=== PATIENT | female | born 1955 | race Caucasian/White ===

== ENCOUNTER 2017-07-27 18:37 | Inpatient (IN) | payer MEDICARE ==
[2017-07-27] MEDS ORDERED: NORMAL SALINE 500 ML IV ONE (19:17)
--- NOTE | 2017-07-27 19:33 | RADIOLOGY REPORT (SQ) ---
EXAM DESCRIPTION: CHEST SINGLE VIEW COMPLETED DATE/TIME: 07/27/2017 7:11 pm REASON FOR STUDY: bed mp db COMPARISON: None. EXAM PARAMETERS: NUMBER OF VIEWS: One view. TECHNIQUE: Single frontal radiographic view of the chest acquired. RADIATION DOSE: NA LIMITATIONS: None. FINDINGS: LUNGS AND PLEURA: No consolidation, masses or pneumothorax. No pleural effusion. MEDIASTINUM AND HILAR STRUCTURES: No masses. Contour normal. HEART AND VASCULAR STRUCTURES: Heart normal in size. Normal vasculature. BONES: No acute findings. HARDWARE: CABG. OTHER: No other significant finding. IMPRESSION: NO ACUTE RADIOGRAPHIC FINDING IN THE CHEST. TECHNICAL DOCUMENTATION: JOB ID: [id number] [place]-72 2010 [employer]- All Rights Reserved Reading location - IP/workstation name: [email or web address]
[2017-07-27 19:50] LABS: ABSOLUTE BASOPHILS # (AUTO) 0.1 10^3/uL (0.0-0.2); ABSOLUTE LYMPHOCYTES (AUTO) 2.4 10^3/uL (0.5-4.7); ABSOLUTE MONOCYTES (AUTO) 0.6 10^3/uL (0.1-1.4); ABSOLUTE NEUT (AUTO) 8.9 10^3/uL (1.7-8.2); BASOPHILS % (AUTO) 0.8 % (0-2); EOSINOPHILS % (AUTO) 0.1 % (0-6); HEMATOCRIT 42.8 % (36.0-47.0); LYMPHOCYTES % (AUTO) 19.9 % (13-45); MEAN CORPUSCULAR HEMOGLOBIN 34.4 pg (27.0-33.4); MEAN CORPUSCULAR HGB CONC 32.8 g/dL (32.0-36.0); MEAN CORPUSCULAR VOLUME 105 fl (80-97); MONOCYTES % (AUTO) 4.8 % (3-13); PLATELET COUNT 514 10^3/uL (150-450); RED BLOOD COUNT 4.09 10^6/uL (3.72-5.28); RED CELL DISTRIBUTION WIDTH 14.7 % (11.5-14.0); SEGMENTED NEUTROPHILS % (AUTO) 74.4 % (42-78); TOTAL CELLS COUNTED % (AUTO) 100 %
[2017-07-27] MEDS ORDERED: IPRATROPIUM/ALBUTEROL 0.5-2.5 MG/3 ML AMPUL NEB ONE (19:55)
--- NOTE | 2017-07-27 20:02 | ER Document Report ---
ED General - General Chief Complaint: Shortness Of Breath Stated Complaint: SHORTNESS OF BREATH Time Seen by Provider: 07/27/17 19:08 Mode of Arrival: Ambulatory Information source: Patient Notes: This is a 62-year-old female with a history of coronary artery disease (CABG 10 years ago in [place]), possible history of COPD (per patient accounts) who presents to the emergency room with shortness of breath. Patient states her shortness of breath is progressing over the past week. The patient's states that she has had a 40 pound weight loss in the 6 months. They have moved up from [place] 2 years ago and the patient is not followed by a physician at this time. She is not on any medicines. She denies any chest pain. - HPI Onset: Other - Last few weeks Onset/Duration: Gradual Quality of pain: No pain Severity: None Pain Level: Denies Associated symptoms: Shortness of breath. denies: Chest pain, Fever, Nausea, Vomiting Exacerbated by: Denies Relieved by: Denies Similar symptoms previously: Yes Recently seen / treated by doctor: No - Related Data Allergies/Adverse Reactions: morphine Allergy (Severe, Verified 07/27/17 19:52) Past Medical History - General Information source: Patient - Social History Smoking Status: Former Smoker Cigarette use (# per day): No Chew tobacco use (# tins/day): No Frequency of alcohol use: None Drug Abuse: None Lives with: Family Family History: None Patient has suicidal ideation: No Patient has homicidal ideation: No - Past Medical History Cardiac Medical History: Reports: Hx Coronary Artery Disease Pulmonary Medical History: Reports: None EENT Medical History: Reports: None Neurological Medical History: Reports: None Endocrine Medical History: Reports: Hx Diabetes Mellitus Type 2 Renal/ Medical History: Denies: Hx Peritoneal Dialysis Malignancy Medical History: Reports: None GI Medical History: Reports: None Musculoskeltal Medical History: Reports None Skin Medical History: Reports None Psychiatric Medical History: Reports: None Traumatic Medical History: Reports: None Infectious Medical History: Reports: None Past Surgical History: Reports: Hx Cardiac Catheterization - CABG Review of Systems - Review of Systems Constitutional: denies: Chills, Fever EENT: No symptoms reported Cardiovascular: No symptoms reported Respiratory: No symptoms reported Gastrointestinal: No symptoms reported Genitourinary: No symptoms reported Female Genitourinary: No symptoms reported Musculoskeletal: No symptoms reported Skin: No symptoms reported Hematologic/Lymphatic: No symptoms reported Neurological/Psychological: No symptoms reported Physical Exam - Vital signs Vitals: Pulse Ox 96 07/27/17 18:42 Notes: Physical exam: GENERAL: 62-year-old female who is alert and oriented 3, she appears frail and short of breath. Her blood pressure is 103/79. Her pulse is 115. She has an oxygen saturation of 96% on room air her respiratory rate is 24. HEAD: Atraumatic, normocephalic. EYES: Pupils equal round and reactive to light, extraocular movements intact, sclera anicteric, conjunctiva are normal. ENT: TMs normal, nares patent, oropharynx clear without exudates. Moist mucous membranes. NECK: Normal range of motion, supple without obvious mass or JVD. LUNGS: Breath sounds clear to auscultation bilaterally and equal. No wheezes rales or rhonchi. HEART: Regular rate and rhythm without murmurs, rubs or gallops. ABDOMEN: Soft, normoactive bowel sounds. No tenderness to palpation. No guarding, no rebound. No masses appreciated. EXTREMITIES: Normal range of motion, no pitting or edema. No clubbing or cyanosis. There is no calf tenderness or asymmetry in the lower extremities. NEUROLOGICAL: Cranial nerves II through XII grossly intact. Normal speech, moving all extremities. PSYCH: Normal mood, normal affect. SKIN: Warm, Dry, normal turgor, no rashes or lesions noted. Course - Re-evaluation Re-evalutation: 07/28/17 02:57 Note: The patient was desaturating to the 90% on room air. Her oxygen saturation is approximately 96% with supplemental oxygen. Her chest x-ray appears clear. She does not appear to be in failure. She was given a dual neb but had only minimal results. She does have an elevated d-dimer. We are unable to do a CTA tonight because of lack of an antecubital IV. She does have an IV, just not one in the antecubital which would be necessary for CTA. She was given a dose of Lovenox. The plan will be to bring her into the hospital to continue cardiac enzymes and follow her on the monitor and to consider a VQ scan tomorrow (not available now). - Vital Signs Vital signs: Temp Pulse Resp BP Pulse Ox 97.8 F 96 07/27/17 19:56 07/27/17 18:42 - Laboratory Result Diagrams: 07/27/17 19:36 07/27/17 21:05 Laboratory results interpreted by me: 07/27/17 07/27/17 07/27/17 19:36 21:05 21:50 WBC 12.0 H MCV 105 H MCH 34.4 H RDW 14.7 H Plt Count 514 H Absolute Neutrophils 8.9 H Chloride 108 H Creatinine 0.43 L Calcium 7.7 L Direct Bilirubin 0.7 H Alkaline Phosphatase 129 H Total Protein 5.9 L Albumin 2.3 L Urine Protein 30 H Urine Ketones TRACE H Urine Nitrite POSITIVE H Urine Urobilinogen 4.0 H Ur Leukocyte Esterase MODERATE H - Diagnostic Test Radiology reviewed: Image reviewed, Reports reviewed - Chest x-ray shows no infiltrates or effusions - EKG Interpretation by Me Rate: Normal Rhythm: NSR - EKG shows normal sinus rhythm with a ventricular rate of 100, there is inverted T's V1 through V3. There is no old EKG to compare Critical Care Note - Critical Care Note Total time excluding time spent on procedures (mins): 60 Discharge - Discharge Clinical Impression: Dyspnea, UTI Condition: Stable Disposition: ADMITTED INPATIENT Admitting Provider: Hospitalist - Dr Davey Unit Admitted: Telemetry
--- NOTE | 2017-07-27 21:17 | EKG REPORT ---
SEVERITY:- ABNORMAL ECG - SINUS TACHYCARDIA LOW VOLTAGE IN FRONTAL LEADS NONSPECIFIC T ABNORMALITIES, ANTERIOR LEADS BORDERLINE PROLONGED QT INTERVAL : Confirmed by: Damion Gonzalez 27-Jul-2017 21:16:40
[2017-07-27 21:38] LABS: ALANINE AMINOTRANSFERASE 21 U/L (9-52); ALBUMIN 2.3 g/dL (3.5-5.0); ALKALINE PHOSPHATASE 129 U/L (38-126); ANION GAP 11 (5-19); ASPARTATE AMINO TRANSFERASE 33 U/L (14-36); BILIRUBIN,DIRECT 0.7 mg/dL (0.0-0.4); BLOOD UREA NITROGEN 10 mg/dL (7-20); CALCIUM 7.7 mg/dL (8.4-10.2); CARBON DIOXIDE 25 mmol/L (22-30); CHLORIDE 108 mmol/L (98-107); CREATINE KINASE 36 U/L (30-135); GLUCOSE 94 mg/dL (75-110); POTASSIUM 3.7 mmol/L (3.6-5.0); SODIUM 143.9 mmol/L (137-145); TOTAL PROTEIN 5.9 g/dL (6.3-8.2)
[2017-07-27 21:48] LABS: CREATINE KINASE MB 1.39 ng/mL (<4.55)
[2017-07-27 21:50] LABS: TROPONIN I 0.066 ng/mL
[2017-07-27] MEDS ORDERED: ENOXAPARIN SODIUM INJ 100 MG/1 ML DISP.SYRIN SUBCUT ONE (21:53)
[2017-07-27 22:15] LABS: APPEARANCE,URINE CLOUDY; BILIRUBIN,URINE NEGATIVE (NEGATIVE); COLOR,URINE AMBER; GLUCOSE, URINE NEGATIVE (NEGATIVE); KETONES,URINE TRACE mg/dL (NEGATIVE); LEUKOCYTE ESTERASE,URINE MODERATE (NEGATIVE); NITRITE,URINE POSITIVE (NEGATIVE); PROTEIN,URINE 30 mg/dL (NEGATIVE); URINE SPECIFIC GRAVITY 1.027
[2017-07-28] MEDS ORDERED: CALCIUM GLUCONATE 1000 MG/10 ML INJ IV ONE (00:04)
[2017-07-28] MEDS ORDERED: CEFTRIAXONE 1 GM/D5W RTU 1 GM/50 ML RTUPB IV ONE (00:04)
[2017-07-28] MEDS ORDERED: ONDANSETRON HCL INJ/PF 4 MG/2 ML SDV IV PRN (02:29)
[2017-07-28] MEDS ORDERED: MIRTAZAPINE 15 MG TABLET PO SCH ×2 (02:45→22:00)
--- NOTE | 2017-07-28 02:49 | PDOC H&P ---
History of Present Illness Admission Date/PCP: 07/28/17 02:29 History of Present Illness: AKI KRAUSE is a 62 year old female patient presents with chief complaint of shortness of breath of one-week duration. She claims shortness of breath is getting worse the last several days. Patient has underlying COPD and coronary artery disease status post coronary artery bypass graft 10 years ago. Patient has not seen a physician over 2 years and she is not in any medication. Her chest x-ray shows hyperinflated lungs with bilateral lucencies and her blood work shows mild leukocytosis. Patient denies any chest pain, fever, chills but she endorses dry cough. She denies nausea, vomiting, abdominal pain or diarrhea. Past Medical History Cardiac Medical History: Reports: Coronary Artery Disease Pulmonary Medical History: Reports: None, Chronic Obstructive Pulmonary Disease (COPD) EENT Medical History: Reports: None Neurological Medical History: Reports: None Endocrine Medical History: Reports: Diabetes Mellitus Type 2 Malignancy Medical History: Reports: None GI Medical History: Reports: None Musculoskeltal Medical History: Reports: None Skin Medical History: Reports: None Psychiatric Medical History: Reports: None Traumatic Medical History: Reports: None Infectious Medical History: Reports: None Past Surgical History Past Surgical History: Reports: Cardiac Catheterization - CABG, Coronary Artery Bypass Graft Social History Lives with: Family Smoking Status: Former Smoker Frequency of Alcohol Use: None Drugs: None - Advance Directive Resuscitation Status: Full Code Family History Family History: None Parental Family History Reviewed: Yes Children Family History Reviewed: Yes Sibling(s) Family History Reviewed.: Yes Medication/Allergy Allergies/Adverse Reactions: morphine Allergy (Severe, Verified 07/27/17 19:52) Review of Systems Constitutional: PRESENT: as per HPI Ears: PRESENT: as per HPI Cardiovascular: PRESENT: as per HPI Respiratory: PRESENT: as per HPI Gastrointestinal: PRESENT: as per HPI Neurological: PRESENT: as per HPI Physical Exam Vital Signs: Temp Pulse Resp BP Pulse Ox 97.8 F 96 07/27/17 19:56 07/27/17 18:42 General appearance: PRESENT: disheveled, other - Cachectic Head exam: PRESENT: atraumatic, normocephalic Respiratory exam: PRESENT: wheezes Cardiovascular exam: PRESENT: RRR. ABSENT: diastolic murmur, rubs, systolic murmur GI/Abdominal exam: PRESENT: other - Scaphoid abdomen Neurological exam: PRESENT: alert, awake, oriented to time Psychiatric exam: PRESENT: depressed Results Impressions: Chest X-Ray 07/27/17 18:42 IMPRESSION: NO ACUTE RADIOGRAPHIC FINDING IN THE CHEST. Assessment & Plan - Diagnosis (1) COPD exacerbation Is this a current diagnosis for this admission?: Yes Plan: Patient has been started on Rocephin, doxycycline, supplemental oxygen, DuoNeb, Solu-Medrol. (2) UTI (urinary tract infection) Is this a current diagnosis for this admission?: Yes Plan: Patient has been on ceftriaxone (3) Coronary artery disease Qualifiers: Coronary Disease-Associated Artery/Lesion type: [place] artery Is this a current diagnosis for this admission?: Yes Plan: Patient does not have angina. Continue her home medication. (4) Malnutrition of moderate degree Is this a current diagnosis for this admission?: Yes Plan: Nutritional support. - Time Time Spent: 30 to 50 Minutes - Inpatient Certification Medical Necessity: Need for IV Antibiotics
[2017-07-28] MEDS ORDERED: DOXYCYCLINE HYCLATE 100 MG in DEXTROSE 5%-WATER 250 ML IV ONE (03:00)
[2017-07-28] MEDS ORDERED: METHYLPREDNISOLONE INJ 40 MG/1 ML SDV IV ONE (03:00)
[2017-07-28] MEDS ORDERED: MIRTAZAPINE 15 MG TABLET PO ONE (03:00)
[2017-07-28] MEDS: IPRATROPIUM/ALBUTEROL 0.5-2.5 MG/3 ML AMPUL NEB SCH ×6 (04:12→23:45)
[2017-07-28] MEDS: LANSOPRAZOLE 30 MG TAB.RAP.DR PO SCH (05:07)
[2017-07-28] MEDS: ACETAMINOPHEN 325 MG TABLET PO PRN (08:44)
[2017-07-28] MEDS ORDERED: LORAZEPAM INJ 2 MG/1 ML VIAL IV ONE (09:00)
[2017-07-28] MEDS ORDERED: ENOXAPARIN SODIUM INJ 40 MG/0.4 ML DISP.SYRIN SUBCUT SCH (10:00)
[2017-07-28] MEDS: METHYLPREDNISOLONE INJ 40 MG/1 ML SDV IV SCH ×2 (10:28→18:11)
[2017-07-28] MEDS ORDERED: LORAZEPAM 0.5 MG TABLET PO PRN (11:10)
--- NOTE | 2017-07-28 12:09 | PDOC PROGRESS REPORT ---
Subjective Progress Note for:: 07/28/17 Subjective:: Got very agitated this morning with heart rates up into the 160s, and respiratory rate 30-40. I gave her a milligram of IV Ativan which calmed her down, but it made her fairly sedate. She remains tachycardic with heart rate since the 1 teens. Most of the history I got was from her . Quit smoking 20 years ago. She reports that she has been getting more short of breath over the past week or so, but rather suddenly last night became extremely short of breath, "with a sense of doom, like I was going to ". Reason For Visit: COPD EXACERBATION, UTI Physical Exam Vital Signs: Temp Pulse Resp BP Pulse Ox 98.2 F 110 H 16 91/57 L 98 07/28/17 11:00 07/28/17 11:41 07/28/17 11:41 07/28/17 11:00 07/28/17 11:41 Intake & Output 07/27/17 07/28/17 07/29/17 05:59 05:59 05:59 Weight 108 lb 7.479 oz 108 lb 7.479 oz General appearance: PRESENT: no acute distress, other - Cachectic. ABSENT: well -nourished Respiratory exam: PRESENT: clear to auscultation jony Cardiovascular exam: PRESENT: tachycardia GI/Abdominal exam: PRESENT: soft Extremities exam: ABSENT: pedal edema Neurological exam: PRESENT: awake, oriented to person, oriented to place, oriented to time, oriented to situation, CN II-XII grossly intact. ABSENT: motor sensory deficit Psychiatric exam: PRESENT: other - Currently fairly sedate but conversational Skin exam: PRESENT: warm Results Impressions: Chest X-Ray 07/27/17 18:42 IMPRESSION: NO ACUTE RADIOGRAPHIC FINDING IN THE CHEST. Assessment & Plan - Diagnosis (1) COPD exacerbation Is this a current diagnosis for this admission?: Yes Plan: Think that this is a simple COPD exacerbation, but she does not report having anything anywhere near this severe previously. I will continue usual treatment , and additionally get a CTA of her chest to ensure we are not missing a PE. (2) Panic attacks Is this a current diagnosis for this admission?: Yes Plan: Probably related to hypoxemia/hypercarbia. Symptomatic treatment for now. She has been started on Remeron at bedtime which I think is a good idea. (3) Malnutrition of moderate degree Is this a current diagnosis for this admission?: Yes Plan: Presumably inability to consume enough to keep up with her metabolic demand. (4) UTI (urinary tract infection) Qualifiers: Urinary tract infection type: acute cystitis Hematuria presence: without hematuria Qualified Code(s): N30.00 - Acute cystitis without hematuria Is this a current diagnosis for this admission?: Yes Plan: I think mostly an incidental finding, Rocephin should be effective. Cultures pending.
[2017-07-28] MEDS ORDERED: ENOXAPARIN SODIUM INJ 60 MG/0.6 ML DISP.SYRIN SUBCUT ONE (15:00)
[2017-07-28 16:36] LABS: ARTERIAL BLOOD BASE EXCESS 4.7 mmol/L; ARTERIAL BLOOD FIO2 28%; ARTERIAL BLOOD H2CO3 1.06 mmol/L (1.05-1.35); ARTERIAL BLOOD HCO3 27.6 mmol/L (20-26); ARTERIAL BLOOD O2 SATURATION 97.5 % (94-98); ARTERIAL BLOOD PCO2 35.2 mmHg (35-45); ARTERIAL BLOOD PH 7.51 (7.35-7.45); ARTERIAL BLOOD PO2 88.5 mmHg (80-100); ARTERIAL BLOOD TOTAL CO2 28.7 mmol/L (21-25)
[2017-07-28] MEDS: DOXYCYCLINE HYCLATE 100 MG in DEXTROSE 5%-WATER 250 ML IV SCH (18:11)
[2017-07-28] MEDS ORDERED: CEFTRIAXONE 1 GM/D5W RTU 1 GM/50 ML RTUPB IV SCH (22:00)
[2017-07-28] MEDS ORDERED: CEFTRIAXONE SODIUM 1,000 MG in DEXTROSE 5%-WATER 50 ML IV SCH (22:00)
[2017-07-28] MEDS: MIRTAZAPINE 15 MG TABLET PO SCH (22:27)
[2017-07-28] MEDS: ENOXAPARIN SODIUM INJ 60 MG/0.6 ML DISP.SYRIN SUBCUT SCH (22:28)
[2017-07-28] MEDS: QUETIAPINE FUMARATE 25 MG TABLET PO SCH (22:28)
[2017-07-29] MEDS: METHYLPREDNISOLONE INJ 40 MG/1 ML SDV IV SCH ×2 (02:04→10:35)
[2017-07-29] MEDS: IPRATROPIUM/ALBUTEROL 0.5-2.5 MG/3 ML AMPUL NEB SCH ×5 (03:07→19:43)
[2017-07-29 06:19] LABS: HEMATOCRIT 33.8 % (36.0-47.0); MEAN CORPUSCULAR HEMOGLOBIN 34.6 pg (27.0-33.4); MEAN CORPUSCULAR HGB CONC 33.7 g/dL (32.0-36.0); MEAN CORPUSCULAR VOLUME 103 fl (80-97); PLATELET COUNT 435 10^3/uL (150-450); RED BLOOD COUNT 3.29 10^6/uL (3.72-5.28); RED CELL DISTRIBUTION WIDTH 14.4 % (11.5-14.0); WHITE BLOOD COUNT 16.2 10^3/uL (4.0-10.5)
[2017-07-29 06:33] LABS: ANION GAP 6 (5-19); BLOOD UREA NITROGEN 7 mg/dL (7-20); CALCIUM 7.8 mg/dL (8.4-10.2); CARBON DIOXIDE 29 mmol/L (22-30); CHLORIDE 109 mmol/L (98-107); GLUCOSE 92 mg/dL (75-110); HEMOGLOBIN 11.4 g/dL (12.0-15.5); POTASSIUM 3.5 mmol/L (3.6-5.0); SODIUM 144.2 mmol/L (137-145)
[2017-07-29 06:48] LABS: ABSOLUTE LYMPHOCYTES# (MANUAL) 0.3 10^3/uL (0.5-4.7); ABSOLUTE MONOCYTES # (MANUAL) 0.3 10^3/uL (0.1-1.4); ABSOLUTE NEUTROPHILS# (MANUAL) 15.6 10^3/uL (1.7-8.2); BAND NEUTROPHILS % (MANUAL) 2 % (3-5); BASOPHILS % (MANUAL) 0 % (0-2); EOSINOPHILS % (MANUAL) 0 % (0-6); LYMPHOCYTES % (MANUAL) 2 % (13-45); MONOCYTES % (MANUAL) 2 % (3-13); SEGMENTED NEUTROPHILS % (MAN) 94 % (42-78); TOTAL CELLS COUNTED 100
[2017-07-29 06:52] LABS: ANISOCYTOSIS SLIGHT; BURR CELLS SLIGHT; OVALOCYTES SLIGHT; PLATELET COMMENT ADEQUATE; POIKILOCYTOSIS SLIGHT; SCHISTOCYTES SLIGHT
[2017-07-29] MEDS: DOXYCYCLINE HYCLATE 100 MG in DEXTROSE 5%-WATER 250 ML IV SCH ×2 (08:50→17:41)
[2017-07-29] MEDS: LANSOPRAZOLE 30 MG TAB.RAP.DR PO SCH (08:50)
--- NOTE | 2017-07-29 10:26 | RADIOLOGY REPORT (SQ) ---
EXAM DESCRIPTION: NM LUNG VENT/PERF SCAN COMPLETED DATE/TIME: 07/29/2017 10:06 am REASON FOR STUDY: SOB, ELEV D-DIMER COMPARISON: Chest x-ray dated 07/29/2017 RADIONUCLIDE AND DOSE: 5.15 millicuries TC-99m MAA Intravenous 32.2 millicuries TC-99m DTPA Inhaled aerosol TECHNIQUE: Eight views of the lungs acquired post ventilation of DTPA aerosol. Eight matching views of the lungs acquired following injection of MAA. LIMITATIONS: Study was terminated prior to obtaining all the perfusion images due to the patient's c ondition and patient's request. FINDINGS: VENTILATION: Symmetric and homogeneous distribution of DTPA aerosol during ventilatory pha se. No significant areas of photopenia. PERFUSION: The limited perfusion images demonstrate bilateral ventilation perfusion mismatches suspic ious for pulmonary embolic disease. OTHER: No other significant finding. IMPRESSION: Limited study as noted above. Findings suspicious for bilateral pulmonary embolic disea se as noted above. Clinical correlation is recommended. TECHNICAL DOCUMENTATION: JOB ID: [id number] [employer]- All Rights Reserved Reading location - IP/workstation name: [email or web address]
[2017-07-29] MEDS: ENOXAPARIN SODIUM INJ 60 MG/0.6 ML DISP.SYRIN SUBCUT SCH ×2 (10:34→21:44)
--- NOTE | 2017-07-29 10:56 | RADIOLOGY REPORT (SQ) ---
EXAM DESCRIPTION: CHEST 2 VIEWS COMPLETED DATE/TIME: 07/29/2017 9:25 am REASON FOR STUDY: SOB, ELEVATED D-DIMER PER PROTOCOL FOR NM VQ SCAN OK DEMSIE COMPARISON: 07/27/2017 EXAM PARAMETERS: NUMBER OF VIEWS: two views TECHNIQUE: Digital Frontal and Lateral radiographic views of the chest acquired. RADIATION DOSE: NA LIMITATIONS: none FINDINGS: LUNGS AND PLEURA: No opacities, masses or pneumothorax. No pleural effusion. MEDIASTINUM AND HILAR STRUCTURES: No masses or contour abnormalities. HEART AND VASCULAR STRUCTURES: Heart normal size. No evidence for failure. BONES: No acute findings. HARDWARE: Patient is status post median sternotomy. OTHER: No other significant finding. IMPRESSION: No significant interval change. No acute findings. Other findings as noted above TECHNICAL DOCUMENTATION: JOB ID: [id number] [employer]- All Rights Reserved Reading location - IP/workstation name: [email or web address]
[2017-07-29] MEDS ORDERED: HYDROMORPHONE HCL INJ/PF 2 MG/ML AMPULE ONE ×2 (14:09→15:07)
--- NOTE | 2017-07-29 15:50 | RADIOLOGY REPORT (SQ) ---
EXAM DESCRIPTION: PICC INSERTION; FLUORO/CV PLACEMENT; U/S GUIDE FOR VASCULAR ACCESS COMPLETED DATE/TIME: 07/29/2017 3:41 pm REASON FOR STUDY: no venous access ; NO VENOUS ACCESS COMPARISON: Two-view chest 07/29/2017 FLUOROSCOPY TIME: 12 seconds 2 digital radiographic images, 1 ultrasound image saved to PACS. TECHNIQUE: Fluoroscopic and ultrasound guided PICC placement. LIMITATIONS: None. PROCEDURE: After written consent and assessment were obtained, the patient was brought into the fluo roscopy room and place supine on the table. Ultrasound evaluation of potential access sites were perf ormed. After successfully identifying a patent left basilic vein, the left arm was prepped and draped in a sterile fashion along with the ultrasound probe. The entry site was anesthetized with 1% lidoca ine. A 21 gauge 7 cm needle was advanced through the skin and into the basilic vein under live ultras ound guidance. An ultrasound image was saved to PACS confirming access site. A .018 guide wire was then inserted through the needle and into the venous system. The needle was the removed and an 11 kentrell de scalpel was used to make a 1cm skin incision. A 5 fr peel-away sheath was advanced over the wire and into the venous system. A measurement was then made using the existing wire and live fluoroscopic guidance. The wire was then removed and the trimmed. The PICC was advanced through the peel-away she ath and into the venous system. The peel-away sheath was removed and the catheter was adhered to the patients arm with a stat lock. The catheter was then aspirated and flushed and a sterile bandage was placed over the access site. A fluoroscopic spot image was saved to PACS confirming the catheter tip within the superior vena cava. IMPRESSION: SUCCESSFUL PLACEMENT OF A 5 FR DUAL LUMEN 35 CM PICC IN THE LEFT BASILIC VEIN. COMMENT: Patient medication list reviewed: Yes- Quality ID# [id number]:Eligible professional attests to doc umenting in the medical record they obtained, updated, or reviewed the patient's current medications. . Quality ID 145: Final reports for procedures using fluoroscopy that document radiation exposure willis joan, or exposure time and number of fluorographic images (if radiation exposure indices are not avail able) Quality ID #76: The patient was prepped and draped using maximum sterile barrier technique including cap, mask, sterile gown, sterile gloves, a large sterile sheet, hand hygiene, and 2% Chlorhexidine fo r cutaneous antisepsis. When ultrasound is used, sterile ultrasound techniques are followed requiring sterile gel and sterile probes. TECHNICAL DOCUMENTATION: JOB ID: [id number] [employer]- All Rights Reserved rev-07/30 Reading location - IP/workstation name: [email or web address]
--- NOTE | 2017-07-29 16:03 | RADIOLOGY REPORT (SQ) ---
EXAM DESCRIPTION: CTA CHEST COMPLETED DATE/TIME: 07/29/2017 3:50 pm REASON FOR STUDY: rule out PE COMPARISON: Ventilation-perfusion scan 07/29/2017 Two-view chest 07/29/2017 TECHNIQUE: CT scan of the chest performed using helical scanning technique with dynamic intravenous contrast injection. Images reviewed with lung, soft tissue and bone windows. Reconstructed coronal and sagittal MPR images reviewed. Additional 3 dimensional post-processing performed to develop Maximal Intensity Projection images (OK P). All images stored on PACS. All CT scanners at this facility use dose modulation, iterative reconstruction, and/or weight based d osing when appropriate to reduce radiation dose to as low as reasonably achievable (ALARA). [facility]: Dose Right [facility]: CareDose [facility]: Dose Right [facility]: Teradose 4D [facility]: [employer] CONTRAST TYPE AND DOSE: 56.3 mL Isovue 370- low osmolar. Contrast bolus adequate for pulmonary arteries and aorta. RENAL FUNCTION: Creatinine 0.4 RADIATION DOSE: CT Rad equipment meets quality standard of care and radiation dose reduction techniq ues were employed. CTDIvol: 5.3 - 11.3 mGy. DLP: 188 mGy-cm. . LIMITATIONS: None. FINDINGS: LUNGS AND PLEURA: Small peripheral wedge-shaped infiltrates are seen in the right upper lo be worrisome for pulmonary infarct. Minimal bibasilar atelectasis. No dense consolidation worrisome for pneumonia. No pleural effusion. No pneumothorax. Airways are patent. AORTA AND GREAT VESSELS: No aneurysm. Contrast bolus not optimized for the aorta. HEART: No pericardial effusion. No significant coronary artery calcifications. PULMONARY ARTERIES: Multiple pulmonary emboli are present to the right upper lobe, right middle lobe, right lower lobe, and left lower lobe. This correlates with the ventilation-perfusion scan 8. Result was called to Dr. Vides HILAR AND MEDIASTINAL STRUCTURES: No identified masses or abnormal nodes. HARDWARE: None in the chest. UPPER ABDOMEN: Gastric bypass THYROID AND OTHER SOFT TISSUES: No masses. No adenopathy. BONES: No acute or significant finding. 3D MIPS: Confirm above findings. OTHER: No other significant finding. IMPRESSION: Positive study for multiple pulmonary emboli COMMENT: Pertinent findings on the imaging study reported as a CRITICAL RESULT to DOUG VIDES MD at15:47 on 07/29/2017. Category of Critical Result: Bilateral pulmonary emboli Quality ID # [id number]: Final reports with documentation of one or more dose reduction techniques (e.g., Au tomated exposure control, adjustment of the mA and/or kV according to patient size, use of iterative reconstruction technique) TECHNICAL DOCUMENTATION: JOB ID: [id number] [employer]- All Rights Reserved Reading location - IP/workstation name: [email or web address]
--- NOTE | 2017-07-29 16:40 | PDOC PROGRESS REPORT ---
Subjective Progress Note for:: 07/29/17 Reason For Visit: Patient is seen and evaluated, has shortness of breath still requiring supplemental oxygen, she is not wheezing, has poor IV access and due to that PICC line is placed in CT angiogram, compartment pulmonary embolism Physical Exam Vital Signs: Temp Pulse Resp BP Pulse Ox 98.4 F 106 H 20 100/59 L 95 07/29/17 15:59 07/29/17 16:14 07/29/17 16:14 07/29/17 15:59 07/29/17 16:14 Intake & Output 07/28/17 07/29/17 07/30/17 06:59 06:59 06:59 Intake Total 1731 Output Total 300 Balance 1431 Weight 49.2 kg 49.1 kg General appearance: PRESENT: no acute distress, well-developed, well-nourished Results Laboratory Results: 07/29/17 05:19 07/29/17 05:19 07/29/17 07/29/17 05:19 05:19 WBC 16.2 H RBC 3.29 L Hgb 11.4 L D Hct 33.8 L MCV 103 H MCH 34.6 H MCHC 33.7 RDW 14.4 H Plt Count 435 Seg Neutrophils % Not Reportable Lymphocytes % Not Reportable Monocytes % Not Reportable Eosinophils % Not Reportable Basophils % Not Reportable Absolute Neutrophils Not Reportable Absolute Lymphocytes Not Reportable Absolute Monocytes Not Reportable Absolute Eosinophils Not Reportable Absolute Basophils Not Reportable Sodium 144.2 Potassium 3.5 L Chloride 109 H Carbon Dioxide 29 Anion Gap 6 BUN 7 Creatinine 0.36 L Est GFR ( Amer) > 60 Est GFR (Non-Af Amer) > 60 Glucose 92 Calcium 7.8 L Impressions: Lung Scan-VQ NM 07/28/17 12:58 IMPRESSION: Limited study as noted above. Findings suspicious for bilateral pulmonary embolic disease as noted above. Clinical correlation is recommended. Chest X-Ray 07/29/17 00:00 IMPRESSION: No significant interval change. No acute findings. Other findings as noted above Chest/Abdomen CTA 07/29/17 00:00 IMPRESSION: Positive study for multiple pulmonary emboli Guidance Fluoroscopy 07/29/17 00:00 IMPRESSION: SUCCESSFUL PLACEMENT OF A 5 FR DUAL LUMEN 35 CM PICC IN THE LEFT BASILIC VEIN. Interventional Vascular Procedure 07/29/17 00:00 IMPRESSION: SUCCESSFUL PLACEMENT OF A 5 FR DUAL LUMEN 35 CM PICC IN THE LEFT BASILIC VEIN. PICC Line Insertion 07/29/17 00:00 IMPRESSION: SUCCESSFUL PLACEMENT OF A 5 FR DUAL LUMEN 35 CM PICC IN THE LEFT BASILIC VEIN. Assessment & Plan - Plan Summary Plan Summary: 62-year-old female admitted for progressive shortness of breath, VQ scan and CT confirmed evidence of PE #1 acute pulmonary embolism continue Lovenox 50 mill grams twice a day transition to Xarelto or Eliquis by tomorrow, supplemental oxygen to keep sat above 94% #2 probable COPD currently patient is not wheezing taper steroid continue breathing treatment
[2017-07-29] MEDS: QUETIAPINE FUMARATE 25 MG TABLET PO SCH (21:44)
[2017-07-29] MEDS: MIRTAZAPINE 15 MG TABLET PO SCH (21:44)
[2017-07-29] MEDS: NORMAL SALINE 10 ML SDV (SCHEDULED) IV SCH (23:13)
[2017-07-30] MEDS: IPRATROPIUM/ALBUTEROL 0.5-2.5 MG/3 ML AMPUL NEB SCH ×6 (00:30→20:26)
[2017-07-30] MEDS: LANSOPRAZOLE 30 MG TAB.RAP.DR PO SCH (06:28)
[2017-07-30] MEDS: DOXYCYCLINE HYCLATE 100 MG in DEXTROSE 5%-WATER 250 ML IV SCH (06:29)
[2017-07-30 06:46] LABS: ABSOLUTE BASOPHILS # (AUTO) 0.1 10^3/uL (0.0-0.2); ABSOLUTE MONOCYTES (AUTO) 0.6 10^3/uL (0.1-1.4); ABSOLUTE NEUT (AUTO) 12.5 10^3/uL (1.7-8.2); BASOPHILS % (AUTO) 0.3 % (0-2); EOSINOPHILS % (AUTO) 0.2 % (0-6); HEMATOCRIT 28.6 % (36.0-47.0); HEMOGLOBIN 9.5 g/dL (12.0-15.5); LYMPHOCYTES % (AUTO) 23.3 % (13-45); MEAN CORPUSCULAR HEMOGLOBIN 34.4 pg (27.0-33.4); MEAN CORPUSCULAR HGB CONC 33.2 g/dL (32.0-36.0); MEAN CORPUSCULAR VOLUME 104 fl (80-97); MONOCYTES % (AUTO) 3.5 % (3-13); PLATELET COUNT 462 10^3/uL (150-450); RED BLOOD COUNT 2.76 10^6/uL (3.72-5.28); RED CELL DISTRIBUTION WIDTH 14.7 % (11.5-14.0); SEGMENTED NEUTROPHILS % (AUTO) 72.7 % (42-78); TOTAL CELLS COUNTED % (AUTO) 100 %; WHITE BLOOD COUNT 17.2 10^3/uL (4.0-10.5)
[2017-07-30 06:58] LABS: BLOOD UREA NITROGEN 8 mg/dL (7-20); CALCIUM 7.5 mg/dL (8.4-10.2); GLUCOSE 75 mg/dL (75-110); POTASSIUM 3.5 mmol/L (3.6-5.0)
[2017-07-30 07:04] LABS: CHLORIDE 109 mmol/L (98-107)
[2017-07-30 07:08] LABS: ANION GAP 2 (5-19); CARBON DIOXIDE 34 mmol/L (22-30); SODIUM 144.5 mmol/L (137-145)
[2017-07-30] MEDS: NORMAL SALINE 10 ML SDV (SCHEDULED) IV SCH ×2 (09:15→22:47)
[2017-07-30] MEDS: ENOXAPARIN SODIUM INJ 60 MG/0.6 ML DISP.SYRIN SUBCUT SCH (09:16)
[2017-07-30] MEDS ORDERED: PREDNISONE 20 MG TABLET PO SCH (10:00)
--- NOTE | 2017-07-30 16:24 | PDOC PROGRESS REPORT ---
Subjective Progress Note for:: 07/30/17 Subjective:: Patient was admitted with COPD with acute exacerbation. She is feeling slightly better today but not back to her baseline. Pulmonary embolism on imaging studies. Reason For Visit: COPD EXACERBATION, UTI Physical Exam Vital Signs: Temp Pulse Resp BP Pulse Ox 99.2 F 108 H 16 97/57 L 95 07/30/17 11:43 07/30/17 14:00 07/30/17 11:50 07/30/17 11:43 07/30/17 11:50 Intake & Output 07/29/17 07/30/17 07/31/17 06:59 06:59 06:59 Intake Total 1731 1086 580 Output Total 300 Balance 1431 1086 580 Weight 49.1 kg 48.2 kg General appearance: PRESENT: no acute distress, thin Head exam: PRESENT: atraumatic Ear exam: PRESENT: normal external ear exam Respiratory exam: PRESENT: decreased breath sounds GI/Abdominal exam: PRESENT: normal bowel sounds, soft. ABSENT: distended, guarding, mass, organolmegaly, rebound, tenderness Rectal exam: PRESENT: deferred Extremities exam: PRESENT: full ROM. ABSENT: calf tenderness, clubbing, pedal edema Musculoskeletal exam: PRESENT: ambulatory Neurological exam: PRESENT: alert, awake, oriented to person, oriented to place , oriented to time Psychiatric exam: PRESENT: appropriate affect, normal mood. ABSENT: homicidal ideation, suicidal ideation Skin exam: PRESENT: dry, intact, warm. ABSENT: cyanosis, rash Results Laboratory Results: 07/30/17 06:30 07/30/17 06:30 07/30/17 07/30/17 06:30 06:30 WBC 17.2 H RBC 2.76 L Hgb 9.5 L Hct 28.6 L MCV 104 H MCH 34.4 H MCHC 33.2 RDW 14.7 H Plt Count 462 H Seg Neutrophils % 72.7 Lymphocytes % 23.3 Monocytes % 3.5 Eosinophils % 0.2 Basophils % 0.3 Absolute Neutrophils 12.5 H Absolute Lymphocytes 4.0 Absolute Monocytes 0.6 Absolute Eosinophils 0.0 Absolute Basophils 0.1 Sodium 144.5 Potassium 3.5 L Chloride 109 H Carbon Dioxide 34 H Anion Gap 2 L BUN 8 Creatinine 0.43 L Est GFR ( Amer) > 60 Est GFR (Non-Af Amer) > 60 Glucose 75 Calcium 7.5 L Impressions: Lung Scan-VQ NM 07/28/17 12:58 IMPRESSION: Limited study as noted above. Findings suspicious for bilateral pulmonary embolic disease as noted above. Clinical correlation is recommended. Chest X-Ray 07/29/17 00:00 IMPRESSION: No significant interval change. No acute findings. Other findings as noted above Chest/Abdomen CTA 07/29/17 00:00 IMPRESSION: Positive study for multiple pulmonary emboli Guidance Fluoroscopy 07/29/17 00:00 IMPRESSION: SUCCESSFUL PLACEMENT OF A 5 FR DUAL LUMEN 35 CM PICC IN THE LEFT BASILIC VEIN. Interventional Vascular Procedure 07/29/17 00:00 IMPRESSION: SUCCESSFUL PLACEMENT OF A 5 FR DUAL LUMEN 35 CM PICC IN THE LEFT BASILIC VEIN. PICC Line Insertion 07/29/17 00:00 IMPRESSION: SUCCESSFUL PLACEMENT OF A 5 FR DUAL LUMEN 35 CM PICC IN THE LEFT BASILIC VEIN. Assessment & Plan - Time Time Spent with patient: 15-24 minutes Medications reviewed and adjusted accordingly: Yes Anticipated discharge: Home Within: within 72 hours Disposition: Acute pulmonary embolism patient is currently on Lovenox. I will change this to apixaban. CT scan shows multiple pulmonary emboli on the right upper lobe, right middle lobe, right lower lobe and left lower lobe. It is unclear to me why this patient will have multiple pulmonary emboli and I am not sure the underlying etiologies. Clearly the CT scan shows no malignancy but further evaluation to rule out other etiologies should likely be performed 2. COPD with acute exacerbation improving will continue to taper steroids 3. Urinary tract infection secondary to E. coli patient is currently on doxycycline presumably for an upper respiratory tract infection. Will DC doxycycline and start Augmentin 4. She does have a gram-positive cocci in 1 set of blood cultures. She has had 3 other cultures that are negative I will consider this a contaminant. 5. Leukocytosis is likely due to steroid and expect this to resolve with tapering of steroids 6. Anemia is likely due to hemodilution or initial value was artificially inflated due to dehydration. Will check iron studies as well as go ahead and order a CT of the abdomen in the interim rule out underlying occult malignancy due to the multiple PEs. Patient also has a reactive thrombocytosis that could be related to the anemia. - Inpatient Certification Based on my medical assessment, after consideration of the patient's comorbidities, presenting symptoms, or acuity I expect that the services needed warrant INPATIENT care.: Yes Medical Necessity: Risk of Complication if Not Cared For in Hospital, Risk of Diagnosis Which Will Require Inpatient Eval/Care/Monitoring
[2017-07-30] MEDS: APIXABAN 5 MG TABLET PO SCH (18:11)
[2017-07-30] MEDS: AMOXICILLIN TR/POT CLAVULANATE 500-125 MG TAB PO SCH (22:47)
[2017-07-30] MEDS: MIRTAZAPINE 15 MG TABLET PO SCH (22:47)
[2017-07-30] MEDS: QUETIAPINE FUMARATE 25 MG TABLET PO SCH (22:47)
--- NOTE | 2017-07-30 22:55 | RADIOLOGY REPORT (SQ) ---
EXAM DESCRIPTION: CT ABD/PELVIS WITH IV ORAL COMPLETED DATE/TIME: 07/30/2017 10:38 pm REASON FOR STUDY: Xple PE, r/o abdominal mass COMPARISON: None. TECHNIQUE: CT scan of the abdomen and pelvis performed using helical scanning technique with dynamic intravenous contrast injection. Patient also given oral contrast. Images reviewed with lung, soft t issue, and bone windows. Reconstructed coronal and sagittal MPR images reviewed. Delayed images for e valuation of the urinary system also acquired. All images stored on PACS. All CT scanners at this facility use dose modulation, iterative reconstruction, and/or weight based d osing when appropriate to reduce radiation dose to as low as reasonably achievable (ALARA). [facility]: Dose Right [facility]: CareDose [facility]: Dose Right [facility]: Teradose 4D [facility]: Wattage CONTRAST TYPE AND DOSE: contrast/concentration: Isovue 370.00 mg/ml; Total Contrast Delivered: 52.0 ml; Total Saline Delivered: 65.0 ml RENAL FUNCTION: GFR > 60. RADIATION DOSE: CT Rad equipment meets quality standard of care and radiation dose reduction techniq ues were employed. CTDIvol: 4.9 - 5.6 mGy. DLP: 559 mGy-cm.. LIMITATIONS: None. FINDINGS: LOWER CHEST: Dependent subsegmental atelectasis and/ or scarring. LIVER: Normal size. No masses. No dilated ducts. SPLEEN: Normal size. No focal lesions. PANCREAS: No masses. No significant calcifications. No adjacent inflammation or peripancreatic fluid collections. Pancreatic duct not dilated. GALLBLADDER: Surgically absent. ADRENAL GLANDS: No significant masses or asymmetry. RIGHT KIDNEY AND URETER: No solid masses. No significant calcifications. No hydronephrosis or hyd roureter. LEFT KIDNEY AND URETER: No solid masses. No significant calcifications. No hydronephrosis or hydr oureter. AORTA AND VESSELS: No aneurysm. No dissection. Renal arteries, SMA, celiac without stenosis. RETROPERITONEUM: No retroperitoneal adenopathy, hemorrhage or masses. BOWEL AND PERITONEAL CAVITY: Postsurgical change related to partial bowel resection. Severe fecal re tention. No obstruction. No gross inflammatory change or definite mass. APPENDIX: Normal. PELVIS: No mass. No free fluid. Normal bladder. ABDOMINAL WALL: No masses. No hernias. BONES: Degenerative and postsurgical change without fracture or suspicious osseous lesion. OTHER: No other significant finding. IMPRESSION: No acute inflammatory change. No definite evidence of primary or metastatic disease. Severe fecal retention. Postsurgical change as above. TECHNICAL DOCUMENTATION: JOB ID: [id number] Quality ID # [id number]: Final reports with documentation of one or more dose reduction techniques (e.g., Au tomated exposure control, adjustment of the mA and/or kV according to patient size, use of iterative reconstruction technique) 2010 [employer]- All Rights Reserved Reading location - IP/workstation name: [email or web address]
[2017-07-31] MEDS: IPRATROPIUM/ALBUTEROL 0.5-2.5 MG/3 ML AMPUL NEB SCH ×5 (00:10→20:29)
[2017-07-31] MEDS: LANSOPRAZOLE 30 MG TAB.RAP.DR PO SCH (05:09)
[2017-07-31] MEDS: AMOXICILLIN TR/POT CLAVULANATE 500-125 MG TAB PO SCH ×2 (05:09→13:30)
[2017-07-31] MEDS: NORMAL SALINE 10 ML SDV (AFTER EACH USE) IV PRN ×2 (05:09→23:11)
[2017-07-31 05:23] LABS: ABSOLUTE BASOPHILS # (AUTO) 0.1 10^3/uL (0.0-0.2); ABSOLUTE LYMPHOCYTES (AUTO) 3.2 10^3/uL (0.5-4.7); ABSOLUTE MONOCYTES (AUTO) 0.6 10^3/uL (0.1-1.4); ABSOLUTE NEUT (AUTO) 11.3 10^3/uL (1.7-8.2); ABSOLUTE RETICS # 0.073 10^6/uL (0.028-0.122); BASOPHILS % (AUTO) 0.6 % (0-2); EOSINOPHILS % (AUTO) 0.1 % (0-6); HEMATOCRIT 28.8 % (36.0-47.0); HEMOGLOBIN 9.5 g/dL (12.0-15.5); LYMPHOCYTES % (AUTO) 21.4 % (13-45); MEAN CORPUSCULAR HEMOGLOBIN 34.4 pg (27.0-33.4); MEAN CORPUSCULAR HGB CONC 33.2 g/dL (32.0-36.0); MEAN CORPUSCULAR VOLUME 104 fl (80-97); MONOCYTES % (AUTO) 3.7 % (3-13); PLATELET COUNT 501 10^3/uL (150-450); RED BLOOD COUNT 2.77 10^6/uL (3.72-5.28); RED CELL DISTRIBUTION WIDTH 14.9 % (11.5-14.0); RETICULOCYTE COUNT (AUTO) 2.61 % (0.66-2.85); SEGMENTED NEUTROPHILS % (AUTO) 74.2 % (42-78); TOTAL CELLS COUNTED % (AUTO) 100 %; WHITE BLOOD COUNT 15.2 10^3/uL (4.0-10.5)
[2017-07-31 05:31] LABS: ANION GAP 8 (5-19); BLOOD UREA NITROGEN 7 mg/dL (7-20); CALCIUM 7.5 mg/dL (8.4-10.2); CARBON DIOXIDE 31 mmol/L (22-30); CHLORIDE 108 mmol/L (98-107); GLUCOSE 79 mg/dL (75-110); POTASSIUM 3.4 mmol/L (3.6-5.0); SODIUM 146.7 mmol/L (137-145)
[2017-07-31 06:37] LABS: FOLATE 5.33 ng/mL (>2.76)
[2017-07-31] MEDS: ACETAMINOPHEN 325 MG TABLET PO PRN (07:57)
[2017-07-31] MEDS: NORMAL SALINE 10 ML SDV (SCHEDULED) IV SCH ×2 (09:48→21:13)
[2017-07-31] MEDS: APIXABAN 5 MG TABLET PO SCH ×2 (09:48→17:38)
[2017-07-31] MEDS ORDERED: PREDNISONE 20 MG TABLET PO SCH (10:00)
[2017-07-31] MEDS ORDERED: POTASSIUM CHLORIDE 10 MEQ TABLET.SA PO ONE (15:31)
--- NOTE | 2017-07-31 15:39 | PDOC PROGRESS REPORT ---
Subjective Progress Note for:: 07/31/17 Subjective:: Patient was admitted with COPD with acute exacerbation. She is feeling slightly better today but not back to her baseline. Pulmonary embolism on imaging studies. Reason For Visit: COPD EXACERBATION, UTI Physical Exam Vital Signs: Temp Pulse Resp BP Pulse Ox 99.1 F 111 H 16 90/52 L 94 07/31/17 12:00 07/31/17 12:19 07/31/17 12:19 07/31/17 12:00 07/31/17 12:19 Intake & Output 07/30/17 07/31/17 08/01/17 06:59 06:59 06:59 Intake Total 1086 1243 Balance 1086 1243 Weight 48.2 kg 54 kg General appearance: PRESENT: no acute distress, thin Head exam: PRESENT: atraumatic Eye exam: PRESENT: conjunctiva pink, EOMI, PERRLA. ABSENT: scleral icterus Neck exam: ABSENT: carotid bruit, JVD, lymphadenopathy, thyromegaly Cardiovascular exam: PRESENT: RRR. ABSENT: diastolic murmur, rubs, systolic murmur GI/Abdominal exam: PRESENT: normal bowel sounds, soft. ABSENT: distended, guarding, mass, organolmegaly, rebound, tenderness Rectal exam: PRESENT: deferred Neurological exam: PRESENT: alert, awake, oriented to person, oriented to place , oriented to time Psychiatric exam: PRESENT: agitated Results Laboratory Results: 07/31/17 05:05 07/31/17 05:05 07/31/17 07/31/17 05:05 05:05 WBC 15.2 H RBC 2.77 L Hgb 9.5 L Hct 28.8 L MCV 104 H MCH 34.4 H MCHC 33.2 RDW 14.9 H Plt Count 501 H Seg Neutrophils % 74.2 Lymphocytes % 21.4 Monocytes % 3.7 Eosinophils % 0.1 Basophils % 0.6 Absolute Neutrophils 11.3 H Absolute Lymphocytes 3.2 Absolute Monocytes 0.6 Absolute Eosinophils 0.0 Absolute Basophils 0.1 Retic Count (auto) 2.61 Absolute Retic 0.073 Sodium 146.7 H Potassium 3.4 L Chloride 108 H Carbon Dioxide 31 H Anion Gap 8 BUN 7 Creatinine 0.39 L Est GFR ( Amer) > 60 Est GFR (Non-Af Amer) > 60 Glucose 79 Calcium 7.5 L Iron 24.0 L TIBC 142 L % Saturation 17 Ferritin 147.00 Vitamin B12 > 1000.0 H Folate 5.33 Impressions: Lung Scan-VQ NM 07/28/17 12:58 IMPRESSION: Limited study as noted above. Findings suspicious for bilateral pulmonary embolic disease as noted above. Clinical correlation is recommended. Chest X-Ray 07/29/17 00:00 IMPRESSION: No significant interval change. No acute findings. Other findings as noted above Chest/Abdomen CTA 07/29/17 00:00 IMPRESSION: Positive study for multiple pulmonary emboli Guidance Fluoroscopy 07/29/17 00:00 IMPRESSION: SUCCESSFUL PLACEMENT OF A 5 FR DUAL LUMEN 35 CM PICC IN THE LEFT BASILIC VEIN. Interventional Vascular Procedure 07/29/17 00:00 IMPRESSION: SUCCESSFUL PLACEMENT OF A 5 FR DUAL LUMEN 35 CM PICC IN THE LEFT BASILIC VEIN. PICC Line Insertion 07/29/17 00:00 IMPRESSION: SUCCESSFUL PLACEMENT OF A 5 FR DUAL LUMEN 35 CM PICC IN THE LEFT BASILIC VEIN. Abdomen/Pelvis CT 07/30/17 00:00 IMPRESSION: No acute inflammatory change. No definite evidence of primary or metastatic disease. Severe fecal retention. Postsurgical change as above. Assessment & Plan - Time Time Spent with patient: 15-24 minutes Medications reviewed and adjusted accordingly: Yes Anticipated discharge: Home Within: within 48 hours - Inpatient Certification Based on my medical assessment, after consideration of the patient's comorbidities, presenting symptoms, or acuity I expect that the services needed warrant INPATIENT care.: Yes Medical Necessity: Need Close Monitoring Due to Risk of Patient Decompensation, Risk of Complication if Not Cared For in Hospital - Plan Summary Plan Summary: Acute pulmonary embolism -now on Apixaban. Will discuss with DC tool and production planner to ensure patient's insurance covers this. She also needs some teaching re anticoagulant and she will need a PCP as she currently has none 2. COPD with acute exacerbation improving - continue to taper steroids 3. Urinary tract infection secondary to E. coli patient Cont Augmentin 4. She does have a gram-positive cocci in 1 set of blood cultures with 3 other cultures that are negative so likely this is a contaminant. 5. Leukocytosis is likely due to steroid and expect this to resolve with tapering of steroids 6. Anemia is likely due to hemodilution or initial value was artificially inflated due to dehydration. She is iron deficient. Will give IV iron. Follow up as outpatient for colonoscopy CT scan shows no evidence of underlying etiology/malignancy
[2017-07-31] MEDS ORDERED: IRON SUCROSE COMPLEX INJ/PF 100 MG/5 ML SDV IV ONE (17:30)
[2017-07-31] MEDS: MIRTAZAPINE 15 MG TABLET PO SCH (21:13)
[2017-07-31] MEDS: QUETIAPINE FUMARATE 25 MG TABLET PO SCH (21:13)
[2017-07-31] MEDS: CLINDAMYCIN 600 MG/D5W RTU 600 MG/50 ML RTUPB IV SCH (21:13)
[2017-08-01] MEDS: LANSOPRAZOLE 30 MG TAB.RAP.DR PO SCH (05:49)
[2017-08-01] MEDS: CLINDAMYCIN 600 MG/D5W RTU 600 MG/50 ML RTUPB IV SCH ×3 (05:49→22:04)
[2017-08-01] MEDS: IPRATROPIUM/ALBUTEROL 0.5-2.5 MG/3 ML AMPUL NEB SCH ×3 (09:07→20:27)
[2017-08-01] MEDS: PREDNISONE 20 MG TABLET PO SCH (09:46)
[2017-08-01] MEDS: NORMAL SALINE 10 ML SDV (SCHEDULED) IV SCH ×2 (09:46→22:04)
[2017-08-01] MEDS: APIXABAN 5 MG TABLET PO SCH ×2 (09:46→17:46)
--- NOTE | 2017-08-01 16:55 | PDOC PROGRESS REPORT ---
Subjective Progress Note for:: 08/01/17 Subjective:: Patient was admitted with COPD with acute exacerbation. She is feeling slightly better today and ready to go home Reason For Visit: COPD EXACERBATION, UTI Physical Exam Vital Signs: Temp Pulse Resp BP Pulse Ox 98.7 F 95 14 102/65 99 08/01/17 15:20 08/01/17 15:20 08/01/17 15:20 08/01/17 15:20 08/01/17 15:20 Intake & Output 07/31/17 08/01/17 08/02/17 06:59 06:59 06:59 Intake Total 1243 1874 Balance 1243 1874 Weight 54 kg 51.2 kg General appearance: PRESENT: no acute distress, thin Head exam: PRESENT: atraumatic Eye exam: PRESENT: conjunctiva pink, EOMI, PERRLA. ABSENT: scleral icterus Mouth exam: PRESENT: moist, tongue midline Neck exam: ABSENT: carotid bruit, JVD, lymphadenopathy, thyromegaly Cardiovascular exam: PRESENT: RRR. ABSENT: diastolic murmur, rubs, systolic murmur GI/Abdominal exam: PRESENT: normal bowel sounds, soft. ABSENT: distended, guarding, mass, organolmegaly, rebound, tenderness Rectal exam: PRESENT: deferred Extremities exam: ABSENT: calf tenderness Musculoskeletal exam: PRESENT: ambulatory, full ROM Neurological exam: PRESENT: alert, awake, oriented to person, oriented to place , oriented to time, oriented to situation, CN II-XII grossly intact. ABSENT: motor sensory deficit Results Laboratory Results: 07/31/17 05:05 07/31/17 05:05 Impressions: Lung Scan-VQ NM 07/28/17 12:58 IMPRESSION: Limited study as noted above. Findings suspicious for bilateral pulmonary embolic disease as noted above. Clinical correlation is recommended. Chest X-Ray 07/29/17 00:00 IMPRESSION: No significant interval change. No acute findings. Other findings as noted above Chest/Abdomen CTA 07/29/17 00:00 IMPRESSION: Positive study for multiple pulmonary emboli Guidance Fluoroscopy 07/29/17 00:00 IMPRESSION: SUCCESSFUL PLACEMENT OF A 5 FR DUAL LUMEN 35 CM PICC IN THE LEFT BASILIC VEIN. Interventional Vascular Procedure 07/29/17 00:00 IMPRESSION: SUCCESSFUL PLACEMENT OF A 5 FR DUAL LUMEN 35 CM PICC IN THE LEFT BASILIC VEIN. PICC Line Insertion 07/29/17 00:00 IMPRESSION: SUCCESSFUL PLACEMENT OF A 5 FR DUAL LUMEN 35 CM PICC IN THE LEFT BASILIC VEIN. Abdomen/Pelvis CT 07/30/17 00:00 IMPRESSION: No acute inflammatory change. No definite evidence of primary or metastatic disease. Severe fecal retention. Postsurgical change as above. Assessment & Plan - Time Time Spent with patient: 15-24 minutes Medications reviewed and adjusted accordingly: Yes Anticipated discharge: Home Within: within 48 hours - Inpatient Certification Based on my medical assessment, after consideration of the patient's comorbidities, presenting symptoms, or acuity I expect that the services needed warrant INPATIENT care.: Yes Medical Necessity: Need for IV Antibiotics, Risk of Diagnosis Which Will Require Inpatient Eval/Care/Monitoring - Plan Summary Plan Summary: Acute pulmonary embolism -now on Apixaban. Will discuss with DC paraplanner to ensure patient's insurance covers this. She also needs some teaching re anticoagulant and she will need a PCP as she currently has none 2. COPD with acute exacerbation improving - continue to taper steroids 3. Urinary tract infection secondary to E. coli 4. Anemia is likely due to hemodilution or initial value was artificially inflated due to dehydration. She is iron deficient. Transfused IV iron. Follow up as outpatient for colonoscopy if she continues to refuse in patient CT scan shows no evidence of underlying etiology/malignancy Blood cultures growing Staphylococcus Lugdunensis and Staphylococcus epidermidis , 1 out of 4 bottles. Significance of this is really unclear however I continue to worry about an underlying occult malignancy. Patient has never had a colonoscopy done and although the CT abdomen and pelvis was negative for any mass asked patient to consider a colonoscopy however she is pretty adamant that she does not want one and refuses to let anybody go in her rectum despite reassurances from me. I have urged her to think about it overnight as I would like to obtain a colonoscopy if possible on her before she leaves the hospital especially since she is currently on anticoagulants for the next few months. I have told her about my concern for an occult malignancy and the need to get a colonoscopy done and despite this she still resistant. I will repeat her blood cultures. She received treatment for E. coli UTI total of 5 days antibiotic which is sufficient for now
[2017-08-01] MEDS: MIRTAZAPINE 15 MG TABLET PO SCH (22:03)
[2017-08-01] MEDS: QUETIAPINE FUMARATE 25 MG TABLET PO SCH (22:04)
[2017-08-01] MEDS: NORMAL SALINE 10 ML SDV (AFTER EACH USE) IV PRN (23:38)
[2017-08-02] MEDS: LANSOPRAZOLE 30 MG TAB.RAP.DR PO SCH (05:25)
[2017-08-02] MEDS: CLINDAMYCIN 600 MG/D5W RTU 600 MG/50 ML RTUPB IV SCH (05:25)
[2017-08-02] MEDS: NORMAL SALINE 10 ML SDV (AFTER EACH USE) IV PRN ×2 (06:46→09:33)
[2017-08-02] MEDS: IPRATROPIUM/ALBUTEROL 0.5-2.5 MG/3 ML AMPUL NEB SCH ×2 (08:38→14:35)
[2017-08-02] MEDS: PREDNISONE 20 MG TABLET PO SCH (09:32)
[2017-08-02] MEDS: APIXABAN 5 MG TABLET PO SCH (09:33)
[2017-08-02] MEDS: NORMAL SALINE 10 ML SDV (SCHEDULED) IV SCH (09:34)
[2017-08-02 14:05] VITALS: BP 95/60
--- NOTE | 2017-08-02 14:07 | PDOC DISCHARGE SUMMARY ---
General - Admit/Disc Date/PCP Admission Date/Primary Care Provider: 07/28/17 02:29 Discharge Date: 08/02/17 - Discharge Diagnosis (1) Pulmonary embolism Is this a current diagnosis for this admission?: Yes (2) COPD exacerbation Is this a current diagnosis for this admission?: Yes (3) Coronary artery disease Is this a current diagnosis for this admission?: Yes (4) Malnutrition of moderate degree Is this a current diagnosis for this admission?: Yes (5) UTI (urinary tract infection) Is this a current diagnosis for this admission?: Yes (6) Hypokalemia Is this a current diagnosis for this admission?: Yes (7) Hypernatremia Is this a current diagnosis for this admission?: Yes (8) Respiratory failure Is this a current diagnosis for this admission?: Yes - Additional Information Resuscitation Status: Full Code Discharge Diet: As Tolerated Discharge Activity: Activity As Tolerated, Balance Activity w/Rest Prescriptions: Ferrous Sulfate 325 mg PO BID #60 tablet Rivaroxaban [Xarelto] 20 mg PO DAILY #30 tablet Rivaroxaban [Xarelto 15 mg Tablet] 15 mg PO BID #42 tablet Home Medications: Ferrous Sulfate 325 mg PO BID #60 tablet 08/02/17 Rivaroxaban [Xarelto 15 mg Tablet] 15 mg PO BID #42 tablet 08/02/17 Rivaroxaban [Xarelto] 20 mg PO DAILY #30 tablet 08/02/17 History of Present Illness History of Present Illness: AKI KRAUSE is a 62 year old female Patient was admitted with difficulty breathing and shortness of breath. It appears that she was very agitated and confused on initial presentation. She had presented with a sense of doom almost like she was going to . She ultimately had a VQ scan done with findings suspicious for bilateral pulmonary emboli and CT scan angiogram done confirmed possible pulmonary emboli with small peripheral wedge-shaped infiltrates in the right upper lobe right middle lobe, right lower lobe and left lower lobe. Hospital Course Hospital Course: Patient was admitted with difficulty breathing and shortness of breath. It appears that she was very agitated and confused on initial presentation. She had presented with a sense of doom almost like she was going to . She ultimately had a VQ scan done with findings suspicious for bilateral pulmonary emboli and CT scan angiogram done confirmed possible pulmonary emboli with small peripheral wedge-shaped infiltrates in the right upper lobe right middle lobe, right lower lobe and left lower lobe. Patient was started on Lovenox full strength and this was subsequently changed to Xarelto at discharge. Attempts were made to ensure that patient would be able to obtain her medications including providing a 30 day coupon for her for the Xarelto. Was also set up with a primary care physician that she will need to follow-up with. Due to concerns about the etiology of the pulmonary emboli CT scan of abdomen was done which did not reveal any evidence of malignancy. Patient however was iron deficient and had never had a colonoscopy before. I tried to convince to have wound especially while still in hospital but patient was adamantly opposed to this and refused to even consider right despite telling her my fear and my concern. She is also iron deficient she received intravenous iron and was discharged home with oral iron however I have emphasized to patient the need to follow-up with physician and the need for a colonoscopy to rule out colon cancer. She states that she really does not want to know if she has cancer and she is quite satisfied with the way things are. Her respiratory status gradually improved throughout her hospital stay and her tachycardia and hypoxemia resolved. She did receive a steroids due to COPD exacerbation and this likely is responsible for her leukocytosis. At this point with no further interventions been planned and with patient being relatively hemodynamically stable as she is being discharged home for outpatient follow-up. She was educated on anticoagulant use and advised on adverse effects that she needs to be aware of Patient had 1 set of blood cultures that was positive for Staphylococcus and was this was possibly contaminant patient really had no evidence of a bacteremia this also contributed to the concern about underlying occult malignancy. A two-dimensional echocardiogram was done however this was of limited study because was technically suboptimal. JUSTIN was recommended however patient adamantly refused any further tests or any further transfer. At this point with patient refusing any further interventions and she being well aware of the possible ramifications of such refusal she has been discharged home. Her was also present for most of my conversations with her and he states that he can make her change her mind or may Agree to the test that she does not want to do. Patient also had disagreements with the nursing staff about this issue of getting her test done. I have opted to discharge her as is her wish and encourage her to follow-up with the primary care physician that was provided for her. Patient was satisfied with my management and explanation of a possible consequences of treatment and refusal to add to treatment. She was treated for urinary tract infection secondary to E. coli and she received a full course of antibiotic treatment during her hospital stay. Physical Exam Vital Signs: Temp Pulse Resp BP Pulse Ox 99.0 F 102 H 18 108/67 93 08/02/17 13:55 08/02/17 13:55 08/02/17 13:55 08/02/17 13:55 08/02/17 13:55 Intake & Output 08/01/17 08/02/17 08/03/17 06:59 06:59 06:59 Intake Total 1874 1142 Output Total 9 Balance 1874 1133 Weight 51.2 kg 52.1 kg General appearance: PRESENT: no acute distress, thin Head exam: PRESENT: atraumatic, normocephalic Eye exam: PRESENT: conjunctiva pink, PERRLA. ABSENT: scleral icterus Mouth exam: PRESENT: tongue midline Neck exam: ABSENT: carotid bruit, JVD, lymphadenopathy, thyromegaly Respiratory exam: PRESENT: clear to auscultation jony. ABSENT: rales, rhonchi, wheezes Cardiovascular exam: PRESENT: RRR. ABSENT: diastolic murmur, rubs, systolic murmur GI/Abdominal exam: PRESENT: normal bowel sounds, soft. ABSENT: distended, guarding, mass, organolmegaly, rebound, tenderness Rectal exam: PRESENT: deferred Extremities exam: PRESENT: full ROM. ABSENT: calf tenderness, clubbing, pedal edema Neurological exam: PRESENT: alert, awake, oriented to person, oriented to place , oriented to time, oriented to situation, CN II-XII grossly intact. ABSENT: motor sensory deficit Psychiatric exam: PRESENT: appropriate affect, normal mood. ABSENT: homicidal ideation, suicidal ideation Skin exam: PRESENT: dry, intact, warm. ABSENT: cyanosis, rash Results Laboratory Results: 07/31/17 05:05 07/31/17 05:05 07/28/17 02:30 Blood Blood Culture - Final NO GROWTH IN 5 DAYS Impressions: Lung Scan-VQ NM 07/28/17 12:58 IMPRESSION: Limited study as noted above. Findings suspicious for bilateral pulmonary embolic disease as noted above. Clinical correlation is recommended. Chest X-Ray 07/29/17 00:00 IMPRESSION: No significant interval change. No acute findings. Other findings as noted above Chest/Abdomen CTA 07/29/17 00:00 IMPRESSION: Positive study for multiple pulmonary emboli Guidance Fluoroscopy 07/29/17 00:00 IMPRESSION: SUCCESSFUL PLACEMENT OF A 5 FR DUAL LUMEN 35 CM PICC IN THE LEFT BASILIC VEIN. Interventional Vascular Procedure 07/29/17 00:00 IMPRESSION: SUCCESSFUL PLACEMENT OF A 5 FR DUAL LUMEN 35 CM PICC IN THE LEFT BASILIC VEIN. PICC Line Insertion 07/29/17 00:00 IMPRESSION: SUCCESSFUL PLACEMENT OF A 5 FR DUAL LUMEN 35 CM PICC IN THE LEFT BASILIC VEIN. Abdomen/Pelvis CT 07/30/17 00:00 IMPRESSION: No acute inflammatory change. No definite evidence of primary or metastatic disease. Severe fecal retention. Postsurgical change as above. Qualifiers - * PATIENT BEING DISCHARGED WITH ANY OF THE FOLLOWING DIAGNOSIS: VTE (PE or DVT) VTE patient discharged on overlapping Therapy?: Yes
[2017-08-02] MEDS ORDERED: ONDANSETRON HCL INJ/PF 4 MG/2 ML SDV IV PRN (15:30)
--- NOTE | 2017-08-02 17:50 | XCELERA REPORT ---
[address] [address] Transthoracic Echocardiogram Report Name: AKI KRAUSE Age: 62 yrs Gender: Female : 1955 Patient Status: Inpatient Patient Location: [address] [place] [address] Study Date: 08/02/2017 11:15 AM Height: 64 in Weight: 119 lb BSA: 1.6 m2 Procedure: A two-dimensional transthoracic echocardiogram with color flow and Doppler was performed. Images were not obtained from all of the standard acoustic windows due to the limited scope of the study. Study Quality: Technically suboptimal. Reason For Study: Bacteremia History: Bacteremia. Ordering Physician: RICARDO HONG Performed By: Anjelica Mancuso Interpretation Summary RECOMMEND JUSTIN. Study Quality: Technically suboptimal. The left ventricle is normal in size. No apical or 4 chamber views not obtained.The Anteroseptal sauer and mid inferior sauer contract normally.In the limited views the LVEF is normal at > than 60%.There is no LVH. Doppler measurements suggest pseudonormalized left ventricular relaxation, which is associated with grade II/IV or mild to moderate diastolic dysfunction No thrombus seen in limited views, but needs JUSTIN to asses for vegetations. The left atrial size is normal. There is no evidence of mitral valve prolapse. There is no mitral valve stenosis. No aortic regurgitation is present. There is no tricuspid stenosis. There is a trace amount of tricuspid regurgitation There is moderate pulmonary hypertension by echo RVSP is 55 mm of Hg. There is no pericardial effusion. RECOMMEND JUSTIN. MMode/2D Measurements & Calculations RVDd: 2.9 cm LVIDd: 3.2 cm FS: 40.6 % Ao root diam: 2.6 cm IVSd: 0.88 cm LVIDs: 1.9 cm EDV(Teich): 40.5 ml LVPWd: 0.85 cm ESV(Teich): 11.0 ml Ao root area: 5.2 cm2 EF(Teich): 72.8 % LA dimension: 2.7 cm Doppler Measurements & Calculations MV E max macey: MV P1/2t max macey: Ao V2 max: LV V1 max P.2 cm/sec 63.2 cm/sec 124.9 cm/sec 2.7 mmHg MV A max macey: MV P1/2t: 84.7 msec Ao max PG: LV V1 max: 68.8 cm/sec 6.2 mmHg 82.3 cm/sec MV E/A: 0.92 MVA(P1/2t): 2.6 cm2 MV dec slope: 218.6 cm/sec2 MV dec time: 0.30 sec PA V2 max: TR max macey: 68.1 cm/sec 335.3 cm/sec PA max PG: TR max P.0 mmHg 1.9 mmHg Left Ventricle The left ventricle is normal in size. No apical or 4 chamber views not obtained.The Anteroseptal sauer and mid inferior sauer contract normally.In the limited views the LVEF is normal at > than 60%.There is no LVH. Doppler measurements suggest pseudonormalized left ventricular relaxation, which is associated with grade II/IV or mild to moderate diastolic dysfunction. No thrombus seen in limited views, but needs JUSTIN to asses for vegetations. Right Ventricle The right ventricle is not well visualized secondary to technical limitations. Atria Right atrium not well visualized secondary to technical limitations. The left atrial size is normal. Mitral Valve There is no evidence of mitral valve prolapse. There is no vegetation seen on the mitral valve. There is no mitral valve stenosis. There is no mitral regurgitation noted. Aortic Valve There is no aortic valve stenosis. There is no LVOT obstruction. No aortic regurgitation is present. Tricuspid Valve There is no tricuspid stenosis. There is a trace amount of tricuspid regurgitation. There is moderate pulmonary hypertension by echo. RVSP is 55 mm of Hg. Pulmonic Valve The pulmonic valve is not well visualized. Great Vessels The aortic root is not well visualized. Effusions There is no pericardial effusion. : RICARDO HONG > Joanna Zamora
[2017-08-03] MEDS ORDERED: LANSOPRAZOLE 30 MG TAB.RAP.DR PO SCH (06:00)
[2017-08-03] MEDS ORDERED: PREDNISONE 10 MG TABLET PO SCH (10:00)
--- NOTE | 2017-08-26 07:55 | Progress Note ---
Provider Note Provider Note: Patient was not in acute respiratory failure. She had Respiratory insufficiency with mild hypoxemia
== END 2017-08-02 15:26 | disposition home or self-care (01) | DRG 176 ==
LOC: ER 18:37 → EH 07-28 02:29 → 4S 07-28 04:28
PROVIDERS: ADMIT Internal Medicine; ATTEND Internal Medicine
PROC: 02HV33Z Insertion of Infusion Device into Superior Vena Cava, Percutaneous Approach (ICD-10-PCS; principal; 2017-07-29)
PROC: B548ZZA Ultrasonography of Superior Vena Cava, Guidance (ICD-10-PCS; 2017-07-29)
DX: I26.99 Other pulmonary embolism without acute cor pulmonale (principal); J44.1 Chronic obstructive pulmonary disease with (acute) exacerbation; E44.0 Moderate protein-calorie malnutrition; Z68.1 Body mass index [BMI] 19.9 or less, adult; N39.0 Urinary tract infection, site not specified; E87.0 Hyperosmolality and hypernatremia; I25.10 Atherosclerotic heart disease of native coronary artery without angina pectoris; E87.6 Hypokalemia; E61.1 Iron deficiency; F41.0 Panic disorder [episodic paroxysmal anxiety]; R09.02 Hypoxemia; I87.2 Venous insufficiency (chronic) (peripheral); E86.0 Dehydration; D72.829 Elevated white blood cell count, unspecified; T38.0X5A Adverse effect of glucocorticoids and synthetic analogues, initial encounter; Z53.29 Procedure and treatment not carried out because of patient's decision for other reasons; B96.20 Unspecified Escherichia coli [E. coli] as the cause of diseases classified elsewhere; E11.9 Type 2 diabetes mellitus without complications; Z95.1 Presence of aortocoronary bypass graft; Z87.891 Personal history of nicotine dependence; Z88.6 Allergy status to analgesic agent; Z79.01 Long term (current) use of anticoagulants
CPT/HCPCS: 36415; 36569; 36600; 71045; 71046; 71275; 74177; 76937; 77001; 78582; 80048; 80053; 81001; 82550; 82553; 82607; 82728; 82746; 82803; 83540; 83550; 84443; 84484; 85025; 85045; 85379; 87040; 87077; 87086; 87088; 87186; 93005; 93010; 93306; 94640; 94667; 94668; 96365; 96372; 99291; A9540; A9567; J0610; J0696; J1170; J1642; J1650; J1756; J2060; J2920; J3490; J7040; J7060; J7512; J7620; Q9969